=== PATIENT | female | born 1950 | race Caucasian/White ===

== ENCOUNTER 2017-09-14 05:32 | Day surgery (SDC) | payer MEDICARE, BC ==
[2017-09-14] MEDS ORDERED: Midazolam 1 MG/ML 2 ML SDV IV ONE (05:33)
[2017-09-14] MEDS ORDERED: fentaNYL 100 MCG/2 ML SDV IV ONE (05:33)
[2017-09-14] MEDS: Dextrose 5%-0.45% NaCl 1,000 ML IV SCH (05:57)
[2017-09-14] MEDS: Sodium Chloride 0.9% 10 ML Syringe FLUSH PRN (05:57)
[2017-09-14] MEDS ORDERED: Midazolam 1 MG/ML 2 ML SDV ONE (06:22)
[2017-09-14] MEDS ORDERED: fentaNYL 100 MCG/2 ML SDV ONE (06:22)
[2017-09-14] MEDS: fentaNYL 100 MCG/2 ML SDV IV ONE ×2 (06:30→06:31)
[2017-09-14] MEDS: Midazolam 1 MG/ML 2 ML SDV IV ONE ×3 (06:31→06:33)
--- NOTE | 2017-09-14 07:31 | OR ---
DATE: 09/14/2017 PROCEDURE PERFORMED: Total colonoscopy. INSTRUMENT USED: CF-H180AL Olympus videocolonoscope. PREMEDICATIONS: Fentanyl 100 mcg intravenous and Versed 2.5 mg intravenous. Nasal O2 cannula. The procedure was done under pulse oximetry, BP recording, and apprenticeship representative INDICATION: Screening colonoscopic examination is done for detection of any polypoid lesions and removal, endoscopic hemostasis therapy if needed. DESCRIPTION OF PROCEDURE: Initial rectal exam showed external hemorrhoidal tags. Rigid anoscopy was normal. The colonoscope was passed with ease up to the ileocecal area, photographs were taken of the normal-appearing cecum identified by landmarks of appendiceal orifice and double-bulged ileocecal folds. No bleeding was noted from any of the visualized areas at the commencement of the examination. No stricture. No vascular ectasia. No large isolated ulcerations seen. No evidence of diffuse inflammatory bowel disease in the form of friability, contact bleeding, or ulcerations. No polyp or tumor mass identified. Probing the proximal sides of folds and flexures, using adequate distention and clearing of the stool material, withdrawal of the scope was made, cecum to rectum time over 6 minutes. No bleeding was noted from any of the visualized areas at the completion of examination. IMPRESSION: External hemorrhoids. The patient tolerated the procedure well. [facility] /[id number]
--- NOTE | 2017-09-14 10:01 | LETTER ---
09/14/2017 Ada Childers MD [address] [address] RE: YAN BARILLAS : [address] Childers: Ms. Yan Barillas had colonoscopic examination done this morning and she tolerated the procedure well. I herewith send a copy of the endoscopy note and photographs for your review. Thank you. Sincerely, [facility] /[id number]
== END 2017-09-14 08:55 | disposition home or self-care (01) ==
LOC: DL.ENDO 05:32
PROVIDERS: ATTEND Internal Medicine Gastroenterology
DX: Z12.11 Encounter for screening for malignant neoplasm of colon (principal); K64.4 Residual hemorrhoidal skin tags
CPT/HCPCS: G0121; J2250; J3010; J7042; J7050

== ENCOUNTER 2023-12-17 10:00 | Emergency (ER) | payer MEDICARE, BC ==
[2023-12-17 10:17] LABS: BASOPHILS PERCENT AUTO 0.4 % (0.0-1.0); EOSINOPHILS PERCENT AUTO 1.7 % (1.0-3.0); HEMATOCRIT 42.6 % (37.0-47.0); HEMOGLOBIN 14.8 g/dL (12.0-16.0); LYMPHOCYTES PERCENT AUTO 40.3 % (20.5-50.1); MEAN CORPUSCULAR HEMOGLOBIN 29.8 pg (27.0-34.0); MEAN CORPUSCULAR HGB CONC 34.7 g/dL (33.0-35.0); MEAN CORPUSCULAR VOLUME 85.9 fL (80-100); MONOCYTES PERCENT AUTO 9.1 % (2-8); NEUTROPHILS PERCENT AUTO 48.5 % (42.2-75.2); PLATELET COUNT,PLT 260 10^3/uL (150-450); RED BLOOD CELL COUNT 4.96 10^6/uL (4.2-5.4); WHITE BLOOD CELL COUNT,WBC 9.1 10^3/uL (5.0-10.0)
[2023-12-17 10:36] LABS: A/G RATIO 1.1; ALBUMIN 3.9 g/dL (3.4-5.0); ANION GAP 19.1 mEq/L (7-13); BUN/CREATININE RATIO 19.6 (No establ ref range); CALCIUM 9.7 mg/dL (8.5-10.1); CREATININE 0.92 mg/dL (0.55-1.02); EST CRCL DRUG DOSING (CG) 51.74 mL/min; POTASSIUM,K 4.1 mmol/L (3.5-5.1); PROTEIN TOTAL,TP 7.4 g/dL (6.4-8.2)
[2023-12-17] MEDS: Iopamidol 612 MG/ML 100 ML Bottle IVPUSH ONE (10:58)
[2023-12-17] MEDS: cefTRIAXone 1 GM Vial IVPUSH ONE (11:11)
[2023-12-17] MEDS: Acetaminophen 500 MG Tab PO ONE (12:42)
== END 2023-12-17 14:21 | disposition home or self-care (01) ==
LOC: DL.ED 10:00
DX: S01.91XA Laceration without foreign body of unspecified part of head, initial encounter (principal); Z79.899 Other long term (current) drug therapy; W01.198A Fall on same level from slipping, tripping and stumbling with subsequent striking against other object, initial encounter; Y93.01 Activity, walking, marching and hiking
CPT/HCPCS: 12001; 36415; 70450; 71260; 72125; 73090; 73110; 73130; 74177; 80053; 85025; 93005; 93010; 96374; 99284; A9270; J0696; Q9967